=== PATIENT | female | born 1970 | race Caucasian/White ===

== ENCOUNTER 2016-06-06 03:35 | Emergency (ER) | payer OTHER ==
[~2016-06-06 03:35] MED LIST: DICY20TA11 PO; NORC5TAB PO; PRED20TA PO; PRIL40CA PO; STOO100C PO
[2016-06-06 04:57] LABS: ABG BASE EXCESS -2.2 (-2.0-2.0); ABG DEVICE NASAL CANN; ABG HCO3 21.3 MEQ/L (22.0-26.0); ABG PARTIAL PRESSURE CO2 32.6 mmHg (35.0-45.0); ABG PARTIAL PRESSURE O2 91.3 mmHg (75.0-100.0); ABG STANDARD HCO3 22.7 MEQ/L (22.0-26.0); ABG TOTAL CO2 22.3 MEQ/L (22.0-29.0); ABG pH (ARTERIAL) 7.433 UNITS (7.350-7.450)
[2016-06-06] MEDS ORDERED: dexameTHASONE 4 MG/ML 1ML VIAL (J1100) As Ordered ONE (05:15)
--- NOTE | 2016-06-06 05:43 | EDDOCDS ---
Nurse's Notes [facility] Name: Alyssa Almaraz Age: 46 yrs Sex: Female : 1970 Arrival Date: 06/06/2016 Time: 03:35 Bed 11 Private MD: Diagnosis: Acute bronchitis Presentation: 06/06 04:05 Presenting complaint: Patient states: Has been ill for a couple of weeks. Was seen at [facility] urgent care and treated with Levaquin for sinusitis. Completed course yesterday. Now feels as if she is SOB. "Can't get enough air." Cough present. Suicide/Homicide risk assessment- the patient denies having any suicidal and/or homicidal ideations and does not present with any other emotional, behavioral or mental health complaints. Status: Patient is not a auto service dispatcher or dependent. Transition of care: patient was not received from another setting of care. 04:05 Acuity: BERENICE Level 4 [facility] 04:05 Method Of Arrival: Walkin/Carried/Asstd [facility] Triage Assessment: 04:09 General: Appears in no apparent distress, comfortable, Behavior is appropriate for age, [facility] cooperative. Pain: Denies pain. HIV screening NA for this visit Offered previously. Respiratory: Onset: The symptoms/episode began/occurred 2 weeks, Airway is patent Respiratory effort is even, unlabored, Respiratory pattern is regular, symmetrical, Breath sounds are clear bilaterally. Reports shortness of breath air hunger. 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 Prilosec 40 mg Oral cpDR 1 cap once daily (Last dose: 06/05/2016) 2. Stool Softener 100 mg oral cap 1 cap once daily (Last dose: 06/05/2016) 3. Tylenol PM 25-500 mg-mg/mL Oral soln 2 tablets as needed (Last dose: 06/05/2016 23:30) - PMHx: Colitis; - PSHx: Cholecystectomy; - Social history: Smoking status: Patient states was never smoker of tobacco. No barriers to communication noted, The patient speaks fluent Kinyarwanda, Speaks appropriately for age. - Family history: Not pertinent. - : The pt / caregiver states he / she is not on anticoagulants. Home medication list is obtained from the patient. - Exposure Risk Screening:: None identified. Screenin:50 Screening information is obtained from the patient. Fall risk: No risks identified. tm5 Assistance ADL's: requires no assistance with activities of daily living. Abuse/DV Screen: The patient / caregiver reports he/she is: not in a situation that causes fear, pain or injury. Nutritional screening: No deficits noted. Advance Directives: There is no active DNR order. home support is adequate. Assessment: 04:50 General: Appears in no apparent distress, Behavior is appropriate for age, cooperative. tm5 Pain: Denies pain. Neurological: Level of Consciousness is awake, alert, Oriented to person, place, time. Cardiovascular: Chest pain is denied. Respiratory: Airway is patent Respiratory effort is even, unlabored, Respiratory pattern is regular, symmetrical, Breath sounds are clear bilaterally. GI: No deficits noted. : No deficits noted. Derm: Skin is pink, warm & dry. 05:41 Reassessment: Patient appears in no apparent distress at this time. Patient states tm5 feeling better. Patient states symptoms have improved. Vital Signs: 04:09 BP 173 / 100; Pulse 85; Resp 18; Temp 98.9(TE); Pulse Ox 95% on R/A; Weight 124.74 kg [facility] (R); Height 5 ft. 10 in. (177.80 cm) (R); Pain 0/10; 05:41 BP 184 / 91; Pulse 74; Resp 18; Temp 97.9(O); Pulse Ox 99% on R/A; Pain 0/10; tm5 04:09 Body Mass Index 39.46 (124.74 kg, 177.80 cm) [facility] Vitals: 04:09 Log In Time: June 06, 2016 at 03:38. [facility] ED Course: 03:37 Patient visited by Quynh Cruz Reg. hs2 03:37 Patient moved to Waiting hs2 04:07 Triage Initiated km 04:20 Patient moved to Triage 2 kmg1 04:21 Patient moved to 11 km 04:25 Rhett King DO is Attending Physician. cs11 04:25 Patient visited by Rhett King DO. cs11 04:49 Patient visited by Jazmyne Mcintyre RN. tm5 04:50 Patient moved to radiology. tm5 04:50 The patient / caregiver is instructed regarding the plan of care and ED course. tm5 04:54 -Arterial Blood Gas Sent. jh6 05:41 Patient visited by Jazmyne Mcintyre RN. tm5 05:41 Notified attending ED physician of pt's blood pressure remaining high . tm5 05:41 No IV's were initiated during this patient's visit. No procedures done that require tm5 assistance. Administered Medications: 05:18 Drug: Decadron - Dexamethasone Sodium Phosphate 8 mg [dexamethasone 4 mg/mL injection tm5 solution (2 mL)] Route: IM; Site: left gluteus; 05:41 Follow up: Response: No Adverse Reaction tm5 RT: 04:54 ABG's drawn from right radial artery pressure held for 5 minutes no bleeding noted jh6 pressure bandage applied specimen sent pt. tolerated well. Respiratory: Airway is patent Respiratory effort is even, unlabored, Respiratory pattern is regular symmetrical, Breath sounds are clear in left posterior upper lobe, right posterior upper lobe, left posterior lower lobe, right posterior middle lobe and right posterior lower lobe. Order Results: Lab Order: -Arterial Blood Gas; SPEC'M 06/06/16 04:48 Test: ABG pH (ARTERIAL); Value: 7.433; Range: 7.350-7.450; Units: UNITS; Status: F Test: ABG PARTIAL PRESSURE CO2; Value: 32.6; Range: 35.0-45.0; Abnormal: Below low normal; Units: mmHg; Status: F Test: ABG PARTIAL PRESSURE O2; Value: 91.3; Range: 75.0-100.0; Units: mmHg; Status: F Test: ABG TOTAL CO2; Value: 22.3; Range: 22.0-29.0; Units: MEQ/L; Status: F Test: ABG HCO3; Value: 21.3; Range: 22.0-26.0; Abnormal: Below low normal; Units: MEQ/L; Status: F Test: ABG BASE EXCESS; Value: -2.2; Range: -2.0-2.0; Abnormal: Below low normal; Status: F Test: ABG STANDARD HCO3; Value: 22.7; Range: 22.0-26.0; Units: MEQ/L; Status: F Test: ABG O2 SATURATION; Value: 97.4; Range: 95.0-99.0; Units: %; Status: F Test: ABG DEVICE; Value: NASAL LENORE; Status: F Outcome: 05:10 Discharge ordered by Provider. cs11 05:41 Discharge Assessment: Patient awake, alert and oriented x 3. No cognitive and/or tm5 functional deficits noted. Patient verbalized understanding of disposition instructions. patient administered narcotics - no. The following High Risk Discharge criteria are identified: None. Discharged to home ambulatory. Condition: good Condition: stable Condition: improved. Discharge instructions given to patient, Instructed on discharge instructions, follow up and referral plans. medication usage, Demonstrated understanding of instructions, medications, Pt was receptive of discharge instructions/ teaching. Prescriptions given X 1. No special radiology studies were completed. Property :Personal belongings accompany Pt. 05:43 Patient left the ED. tm5 Signatures: Yadi Latham, RN RN kmg1 Buddy Solomon jh6 Rhett King, DO cs11 Quynh Cruz, Reg Reg hs2 Jazmyne Mcintyre,TAMICA RN tm5 MTDD
--- NOTE | 2016-06-06 05:43 | EDDOCDS ---
Physician Documentation [facility] Name: Alyssa Almaraz Age: 46 yrs Sex: Female : 1970 Arrival Date: 06/06/2016 Time: 03:35 Bed 11 Private MD: Disposition: 06/06/16 05:10 Discharged to Home/Self Care. Impression: Acute bronchitis. - Condition is Stable. - Prescriptions for Prednisone 20 mg Oral Tablet - take 3 tablet by ORAL route once daily for 5 days; 15 tablet. - Medication Reconciliation, Local Pharmacy Hours form. - Follow up: Private Physician; When: Call to arrange an appointment; Reason: Recheck today's complaints. - Problem is an ongoing problem. - Symptoms have improved. Historical: - Allergies: No known drug Allergies; - Home Meds: 1. Prilosec 40 mg Oral cpDR 1 cap once daily (Last dose: 06/05/2016) 2. Stool Softener 100 mg oral cap 1 cap once daily (Last dose: 06/05/2016) 3. Tylenol PM 25-500 mg-mg/mL Oral soln 2 tablets as needed (Last dose: 06/05/2016 23:30) - PMHx: Colitis; - PSHx: Cholecystectomy; - Social history: Smoking status: Patient states was never smoker of tobacco. No barriers to communication noted, The patient speaks fluent Irish, Speaks appropriately for age. - Family history: Not pertinent. - : The pt / caregiver states he / she is not on anticoagulants. Home medication list is obtained from the patient. - Exposure Risk Screening:: None identified. 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 10 in. (177.80 cm) (R); Pain 0/10; 05:41 BP 184 / 91; Pulse 74; Resp 18; Temp 97.9(O); Pulse Ox 99% on R/A; Pain 0/10; tm5 04:09 Body Mass Index 39.46 (124.74 kg, 177.80 cm) [facility] MDM: 04:25 Call Respiratory ordered. cs11 04:26 -Arterial Blood Gas Ordered. EDMS 04:26 Chest, 2 View (pa\E\lat) Ordered. EDMS 04:40 Call Respiratory complete. tm5 05:05 -Arterial Blood Gas Reviewed. cs11 05:09 Decadron - Dexamethasone Sodium Phosphate 8 mg IM once ordered. cs11 Administered Medications: 05:18 Drug: Decadron - Dexamethasone Sodium Phosphate 8 mg [dexamethasone 4 mg/mL injection tm5 solution (2 mL)] Route: IM; Site: left gluteus; 05:41 Follow up: Response: No Adverse Reaction tm5 Signatures: Dispatcher [employer] EDMS Yadi Latham, RN RN kmg1 Rhett King DO DO cs11 Jazmyne Mcintyre RN RN tm5 MTDD
--- NOTE | 2016-06-06 07:26 | REP ---
Clinical: Shortness of breath . Comparison: 08/10/2009 . Technique: PA and lateral. Findings: The mediastinum and cardiac silhouette are normal. The lung chery are clear and without acute consolidation, effusion, or pneumothorax. The skeletal structures are intact and normal. Impression: 1. No acute cardiopulmonary process. Signed by Murtaza Torrez MD 06/06/2016 07:17 A
--- NOTE | 2016-06-08 06:44 | EDDOCDS ---
Physician Documentation [facility] Name: Alyssa Almaraz Age: 46 yrs Sex: Female : 1970 Arrival Date: 06/06/2016 Time: 03:35 Bed 11 Private MD: Disposition: 06/06/16 05:10 Discharged to Home/Self Care. Impression: Acute bronchitis. - Condition is Stable. - Prescriptions for Prednisone 20 mg Oral Tablet - take 3 tablet by ORAL route once daily for 5 days; 15 tablet. - Medication Reconciliation, Local Pharmacy Hours form. - Follow up: Private Physician; When: Call to arrange an appointment; Reason: Recheck today's complaints. - Problem is an ongoing problem. - Symptoms have improved. Historical: - Allergies: No known drug Allergies; - Home Meds: 1. Prilosec 40 mg Oral cpDR 1 cap once daily (Last dose: 06/05/2016) 2. Stool Softener 100 mg oral cap 1 cap once daily (Last dose: 06/05/2016) 3. Tylenol PM 25-500 mg-mg/mL Oral soln 2 tablets as needed (Last dose: 06/05/2016 23:30) - PMHx: Colitis; - PSHx: Cholecystectomy; - Social history: Smoking status: Patient states was never smoker of tobacco. No barriers to communication noted, The patient speaks fluent Bulgarian, Speaks appropriately for age. - Family history: Not pertinent. - : The pt / caregiver states he / she is not on anticoagulants. Home medication list is obtained from the patient. - Exposure Risk Screening:: None identified. 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 10 in. (177.80 cm) (R); Pain 0/10; 05:41 BP 184 / 91; Pulse 74; Resp 18; Temp 97.9(O); Pulse Ox 99% on R/A; Pain 0/10; tm5 04:09 Body Mass Index 39.46 (124.74 kg, 177.80 cm) [facility] MDM: 04:25 Call Respiratory ordered. cs11 04:26 -Arterial Blood Gas Ordered. EDMS 04:26 Chest, 2 View (pa\E\lat) Ordered. EDMS 04:40 Call Respiratory complete. tm5 05:05 -Arterial Blood Gas Reviewed. cs11 05:09 Decadron - Dexamethasone Sodium Phosphate 8 mg IM once ordered. cs11 05:57 [facility] Payment Agreement was scanned into [employer] and attached to record. hs2 08:38 T-Sheet-- Draft Copy was scanned into [employer] and attached to record. seh Administered Medications: 05:18 Drug: Decadron - Dexamethasone Sodium Phosphate 8 mg [dexamethasone 4 mg/mL injection tm5 solution (2 mL)] Route: IM; Site: left gluteus; 05:41 Follow up: Response: No Adverse Reaction tm5 Signatures: Dispatcher [employer] Yadi Bartlett, RN RN kmg1 Rhett King DO DO cs11 Quynh Cruz, Reg Reg hs2 Kalee Delaney Tonya, RN RN tm5 The chart was reviewed and I authenticate all verbal orders and agree with the evaluation and treatment provided.Attachments: 05:57 [facility] Payment Agreement hs2 08:38 T-Sheet-- Draft Copy se Chart Complete MTDD
--- NOTE | 2016-06-08 06:44 | EDDOCDS ---
Nurse's Notes [facility] Name: Alyssa Almaraz Age: 46 yrs Sex: Female : 1970 Arrival Date: 06/06/2016 Time: 03:35 Bed 11 Private MD: Diagnosis: Acute bronchitis Presentation: 06/06 04:05 Presenting complaint: Patient states: Has been ill for a couple of weeks. Was seen at [facility] urgent care and treated with Levaquin for sinusitis. Completed course yesterday. Now feels as if she is SOB. "Can't get enough air." Cough present. Suicide/Homicide risk assessment- the patient denies having any suicidal and/or homicidal ideations and does not present with any other emotional, behavioral or mental health complaints. Status: Patient is not a environmental services aide or dependent. Transition of care: patient was not received from another setting of care. 04:05 Acuity: BERENICE Level 4 [facility] 04:05 Method Of Arrival: Walkin/Carried/Asstd [facility] Triage Assessment: 04:09 General: Appears in no apparent distress, comfortable, Behavior is appropriate for age, [facility] cooperative. Pain: Denies pain. HIV screening NA for this visit Offered previously. Respiratory: Onset: The symptoms/episode began/occurred 2 weeks, Airway is patent Respiratory effort is even, unlabored, Respiratory pattern is regular, symmetrical, Breath sounds are clear bilaterally. Reports shortness of breath air hunger. 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 Prilosec 40 mg Oral cpDR 1 cap once daily (Last dose: 06/05/2016) 2. Stool Softener 100 mg oral cap 1 cap once daily (Last dose: 06/05/2016) 3. Tylenol PM 25-500 mg-mg/mL Oral soln 2 tablets as needed (Last dose: 06/05/2016 23:30) - PMHx: Colitis; - PSHx: Cholecystectomy; - Social history: Smoking status: Patient states was never smoker of tobacco. No barriers to communication noted, The patient speaks fluent Uzbek, Speaks appropriately for age. - Family history: Not pertinent. - : The pt / caregiver states he / she is not on anticoagulants. Home medication list is obtained from the patient. - Exposure Risk Screening:: None identified. Screenin:50 Screening information is obtained from the patient. Fall risk: No risks identified. tm5 Assistance ADL's: requires no assistance with activities of daily living. Abuse/DV Screen: The patient / caregiver reports he/she is: not in a situation that causes fear, pain or injury. Nutritional screening: No deficits noted. Advance Directives: There is no active DNR order. home support is adequate. Assessment: 04:50 General: Appears in no apparent distress, Behavior is appropriate for age, cooperative. tm5 Pain: Denies pain. Neurological: Level of Consciousness is awake, alert, Oriented to person, place, time. Cardiovascular: Chest pain is denied. Respiratory: Airway is patent Respiratory effort is even, unlabored, Respiratory pattern is regular, symmetrical, Breath sounds are clear bilaterally. GI: No deficits noted. : No deficits noted. Derm: Skin is pink, warm & dry. 05:41 Reassessment: Patient appears in no apparent distress at this time. Patient states tm5 feeling better. Patient states symptoms have improved. Vital Signs: 04:09 BP 173 / 100; Pulse 85; Resp 18; Temp 98.9(TE); Pulse Ox 95% on R/A; Weight 124.74 kg [facility] (R); Height 5 ft. 10 in. (177.80 cm) (R); Pain 0/10; 05:41 BP 184 / 91; Pulse 74; Resp 18; Temp 97.9(O); Pulse Ox 99% on R/A; Pain 0/10; tm5 04:09 Body Mass Index 39.46 (124.74 kg, 177.80 cm) [facility] Vitals: 04:09 Log In Time: June 06, 2016 at 03:38. [facility] ED Course: 03:37 Patient visited by Quynh Cruz Reg. hs2 03:37 Patient moved to Waiting hs2 04:07 Triage Initiated km 04:20 Patient moved to Triage 2 kmg1 04:21 Patient moved to 11 km 04:25 Rhett King DO is Attending Physician. cs11 04:25 Patient visited by Rhett King DO. cs11 04:49 Patient visited by Jazmyne Mcintyre RN. tm5 04:50 Patient moved to radiology. tm5 04:50 The patient / caregiver is instructed regarding the plan of care and ED course. tm5 04:54 -Arterial Blood Gas Sent. jh6 05:41 Patient visited by Jazmyne Mcintyre RN. tm5 05:41 Notified attending ED physician of pt's blood pressure remaining high . tm5 05:41 No IV's were initiated during this patient's visit. No procedures done that require tm5 assistance. 05:57 [facility] Payment Agreement was scanned into [employer] and attached to record. hs2 07:34 Chest, 2 View (pa\\E\\lat) Returned. EDMS 08:38 T-Sheet-- Draft Copy was scanned into [employer] and attached to record. seh Administered Medications: 05:18 Drug: Decadron - Dexamethasone Sodium Phosphate 8 mg [dexamethasone 4 mg/mL injection tm5 solution (2 mL)] Route: IM; Site: left gluteus; 05:41 Follow up: Response: No Adverse Reaction tm5 RT: 04:54 ABG's drawn from right radial artery pressure held for 5 minutes no bleeding noted jh6 pressure bandage applied specimen sent pt. tolerated well. Respiratory: Airway is patent Respiratory effort is even, unlabored, Respiratory pattern is regular symmetrical, Breath sounds are clear in left posterior upper lobe, right posterior upper lobe, left posterior lower lobe, right posterior middle lobe and right posterior lower lobe. Order Results: Lab Order: -Arterial Blood Gas; SPEC'M 06/06/16 04:48 Test: ABG pH (ARTERIAL); Value: 7.433; Range: 7.350-7.450; Units: UNITS; Status: F Test: ABG PARTIAL PRESSURE CO2; Value: 32.6; Range: 35.0-45.0; Abnormal: Below low normal; Units: mmHg; Status: F Test: ABG PARTIAL PRESSURE O2; Value: 91.3; Range: 75.0-100.0; Units: mmHg; Status: F Test: ABG TOTAL CO2; Value: 22.3; Range: 22.0-29.0; Units: MEQ/L; Status: F Test: ABG HCO3; Value: 21.3; Range: 22.0-26.0; Abnormal: Below low normal; Units: MEQ/L; Status: F Test: ABG BASE EXCESS; Value: -2.2; Range: -2.0-2.0; Abnormal: Below low normal; Status: F Test: ABG STANDARD HCO3; Value: 22.7; Range: 22.0-26.0; Units: MEQ/L; Status: F Test: ABG O2 SATURATION; Value: 97.4; Range: 95.0-99.0; Units: %; Status: F Test: ABG DEVICE; Value: NASAL LENORE; Status: F Radiology Order: Chest, 2 View (pa\\E\\lat) Test: Chest, 2 View (pa\\E\\lat) REASON FOR EXAMINATION: Shortness of Breath; Clinical: Shortness of breath .; ; Comparison: 08/10/2009 .; ; Technique: PA and lateral.; ; Findings:; The mediastinum and cardiac silhouette are normal. The lung chery are clear and; without acute consolidation, effusion, or pneumothorax. The skeletal structures; are intact and normal.; ; Impression:; 1. No acute cardiopulmonary process.; ; ; Signed by; Murtaza Torrez MD 06/06/2016 07:17 A; Outcome: 05:10 Discharge ordered by Provider. cs11 05:41 Discharge Assessment: Patient awake, alert and oriented x 3. No cognitive and/or tm5 functional deficits noted. Patient verbalized understanding of disposition instructions. patient administered narcotics - no. The following High Risk Discharge criteria are identified: None. Discharged to home ambulatory. Condition: good Condition: stable Condition: improved. Discharge instructions given to patient, Instructed on discharge instructions, follow up and referral plans. medication usage, Demonstrated understanding of instructions, medications, Pt was receptive of discharge instructions/ teaching. Prescriptions given X 1. No special radiology studies were completed. Property :Personal belongings accompany Pt. 05:43 Patient left the ED. tm5 Signatures: Dispatcher [employer] EDMS Yadi Latham, RN RN kmg1 Buddy Solomon jh6 Rhett King DO DO cs11 Quynh Cruz, Reg Reg hs2 Kalee Delaney Tonya, RN RN tm5 Chart Complete MTDD
--- NOTE | 2016-06-08 06:44 | EDDOCDS ---
Physician Documentation [facility] Name: Alyssa Almaraz Age: 46 yrs Sex: Female : 1970 Arrival Date: 06/06/2016 Time: 03:35 Bed 11 Private MD: Disposition: 06/06/16 05:10 Discharged to Home/Self Care. Impression: Acute bronchitis. - Condition is Stable. - Prescriptions for Prednisone 20 mg Oral Tablet - take 3 tablet by ORAL route once daily for 5 days; 15 tablet. - Medication Reconciliation, Local Pharmacy Hours form. - Follow up: Private Physician; When: Call to arrange an appointment; Reason: Recheck today's complaints. - Problem is an ongoing problem. - Symptoms have improved. Historical: - Allergies: No known drug Allergies; - Home Meds: 1. Prilosec 40 mg Oral cpDR 1 cap once daily (Last dose: 06/05/2016) 2. Stool Softener 100 mg oral cap 1 cap once daily (Last dose: 06/05/2016) 3. Tylenol PM 25-500 mg-mg/mL Oral soln 2 tablets as needed (Last dose: 06/05/2016 23:30) - PMHx: Colitis; - PSHx: Cholecystectomy; - Social history: Smoking status: Patient states was never smoker of tobacco. No barriers to communication noted, The patient speaks fluent Syriac, Speaks appropriately for age. - Family history: Not pertinent. - : The pt / caregiver states he / she is not on anticoagulants. Home medication list is obtained from the patient. - Exposure Risk Screening:: None identified. 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 10 in. (177.80 cm) (R); Pain 0/10; 05:41 BP 184 / 91; Pulse 74; Resp 18; Temp 97.9(O); Pulse Ox 99% on R/A; Pain 0/10; tm5 04:09 Body Mass Index 39.46 (124.74 kg, 177.80 cm) [facility] MDM: 04:25 Call Respiratory ordered. cs11 04:26 -Arterial Blood Gas Ordered. EDMS 04:26 Chest, 2 View (pa\E\lat) Ordered. EDMS 04:40 Call Respiratory complete. tm5 05:05 -Arterial Blood Gas Reviewed. cs11 05:09 Decadron - Dexamethasone Sodium Phosphate 8 mg IM once ordered. cs11 05:57 [facility] Payment Agreement was scanned into [employer] and attached to record. hs2 08:38 T-Sheet-- Draft Copy was scanned into [employer] and attached to record. seh Administered Medications: 05:18 Drug: Decadron - Dexamethasone Sodium Phosphate 8 mg [dexamethasone 4 mg/mL injection tm5 solution (2 mL)] Route: IM; Site: left gluteus; 05:41 Follow up: Response: No Adverse Reaction tm5 Signatures: Dispatcher [employer] Yadi Bartlett, RN RN kmg1 Rhett King DO DO cs11 Quynh Cruz, Reg Reg hs2 Kalee Delaney Tonya, RN RN tm5 The chart was reviewed and I authenticate all verbal orders and agree with the evaluation and treatment provided.Attachments: 05:57 [facility] Payment Agreement hs2 08:38 T-Sheet-- Draft Copy se Chart Complete MTDD
== END 2016-06-06 05:43 | disposition home or self-care (01) ==
LOC: M ED 03:35
DX: J20.9 Acute bronchitis, unspecified (principal); K52.9 Noninfective gastroenteritis and colitis, unspecified; Z79.899 Other long term (current) drug therapy
CPT/HCPCS: 36600; 71020; 82803; 96372; 99284; J1100

== ENCOUNTER → 2016-07-05 | Outpatient (REF) | payer OTHER | LOC: M LAB REF 10:20 | PROVIDERS: ATTEND Physician Assistant Medical | DX: J10.1 Influenza due to other identified influenza virus with other respiratory manifestations (principal) ==

== ENCOUNTER → 2016-09-10 | Outpatient (CLI) | payer OTHER ==
[~2016-09-10] MED LIST changes: +NORC1TAB4 PO; -NORC5TAB PO
--- NOTE | 2016-09-10 10:47 | REP ---
BILATERAL MAMMOGRAM: Family history of breast cancer in maternal grandmother. Bilateral MLO and CC views demonstrate scattered stable fibroglandular elements bilaterally. However, there does appear to be a new 5 mm nodular density in the upper inner left breast. This appears fairly well defined. No other new mass is seen. No clustered microcalcifications are seen. IMPRESSION: There appears to be a new 5 mm nodular density in the upper inner left breast. Recommend spot compression views and ultrasound to further evaluate. ACR 0 incomplete. BI-RADS/ACR category 0 mammogram, incomplete. Additional imaging and/or prior images are needed before a final assessment can be assigned. This mammogram was interpreted with the aid of an FDA-approved computer-aided detection system. A. Negative x-ray reports should not delay biopsy if a dominant or clinically suspicious mass is present. B. Four to eight percent of cancers are not identified by x-ray. C. Adenosis and dense breasts may obscure an underlying neoplasm. The patient states she/he had a clinical breast exam in September 2016. The patient letter being requested is M0
== END ==
LOC: M WHC 08:29
PROVIDERS: ATTEND Nurse Practitioner Women's Health
DX: Z12.31 Encounter for screening mammogram for malignant neoplasm of breast (principal); N63 Unspecified lump in breast

== ENCOUNTER → 2016-09-10 | Outpatient (REF) | payer OTHER | LOC: M SFHCWAGY 08:43 | PROVIDERS: ATTEND Nurse Practitioner Women's Health | DX: Z12.4 Encounter for screening for malignant neoplasm of cervix (principal) ==

== ENCOUNTER → 2016-09-15 | Outpatient (CLI) | payer OTHER ==
--- NOTE | 2016-09-15 15:48 | REP ---
Digital diagnostic unilateral left breast mammography and focused left breast sonography: History: Screening mammography from September 10, 2016 was BIRADS category 0 because of a possible nodular neodensity in the medial aspect of the left breast. Diagnostic imaging was recommended. Mammographic findings: Rolled CC, and magnified focal spot compression CC, true ML and ML views of the left breast are obtained. A nonmagnified true ML view is obtained as well. These confirm the presence of a 5 mm slightly irregular nodular opacity in the superior and medial aspect of the left breast. Scattered fibroglandular elements are seen as before. No other significant mammographic finding. Sonographic findings: The left breast is scanned from 9 o'clock to 12 o'clock. There is a cyst seen at 11 o'clock measuring 5 x 3 x 3 mm located 4 cm from the nipple. This is felt to correspond with the mammographic opacity. Impression: BIRADS category 2 benign left breast imaging. Cyst identified by ultrasound at the site of the nodular neodensity seen mammographically. Repeat screening mammography recommended 1 year. This mammogram was interpreted with the aid of an FDA-approved computer-aided detection system. The patient states she/he had a clinical breast exam in September 10, 2016 The patient letter being requested is M1 . Signed by Prakash Lundy MD 09/15/2016 05:23 P
== END ==
LOC: M RAD 13:09
PROVIDERS: ATTEND Nurse Practitioner Women's Health
DX: N60.02 Solitary cyst of left breast (principal)
CPT/HCPCS: 76642; G0206

== ENCOUNTER → 2017-05-06 | Outpatient (REF) | payer OTHER ==
[2017-05-06 22:39] LABS: APPEARANCE, URINE CLEAR (CLEAR); BACTERIA, URINE AUTO NEGATIVE (NEGATIVE); BILIRUBIN, URINE AUTO NEGATIVE (NEGATIVE); BLOOD, URINE BLOOD NEGATIVE (NEGATIVE); COLOR, URINE YELLOW (YELLOW); GLUCOSE, URINE (UA) AUTO NEGATIVE (NEGATIVE); KETONE, URINE AUTO NEGATIVE (NEGATIVE); LEUKOCYTE ESTERASE, URINE AUTO NEGATIVE (NEGATIVE); MUCUS, URINE SMALL (NEGATIVE); NITRITE, URINE AUTO NEGATIVE (NEGATIVE); PROTEIN, URINE AUTO NEGATIVE (NEGATIVE); RBC, URINE AUTO 0 /HPF (0-3); SQUAMOUS EPITHELIAL CELL UR AU 3 /HPF (0-6); UROBILINOGEN, URINE AUTO 0.2 mg/dL (0.0-2.0); WBC, URINE AUTO 1 /HPF (0-3)
== END ==
LOC: M LAB REF 21:51
DX: N39.0 Urinary tract infection, site not specified (principal)

== ENCOUNTER → 2017-11-01 | Outpatient (CLI) | payer OTHER | LOC: M WHC 10:28 | DX: Z12.31 Encounter for screening mammogram for malignant neoplasm of breast (principal) | CPT/HCPCS: 77067 ==

== ENCOUNTER → 2018-07-22 | Outpatient (CLI) | payer OTHER ==
[~2018-07-22] MED LIST changes: -NORC1TAB4 PO; +NORC1TAB7 PO
--- NOTE | 2018-07-26 21:13 | SLEEPCENT ---
DATE OF PROCEDURE: 07/22/2018 Ordered by: Rashaad Dangelo MD Nocturnal polysomnography was performed for evaluation of sleep physiology in this patient with a history of excessive somnolence, morning headaches and nonrestorative sleep who has comorbidity of hypertension. 9 hours and 3 minutes of data were reviewed. There were 381 minutes of sleep identified. Sleep latency was prolonged at 40 minutes. Rapid eye movement (REM) latency was more so prolonged at 244 minutes. Sleep architecture initially very fragmented, improved substantially and there evidence of REM rebound after interventions were made. Overall sleep efficiency 70.9%. The electrocardiogram showed a sinus rhythm with an average heart rate of 80 beats per minute. EEG showed normal waveforms for awake and sleep stages. There were 186 respiratory events identified of 10 seconds in duration or greater for an apnea-hypopnea index of 29.3. The events were obstructive and associated with oxygen desaturations into the low 80s. Having clearly established the presence of obstructive sleep apnea syndrome early in testing, the study was stopped just after midnight for the application of pressure therapy. The patient was fit with a ResMed AirFit F20 full face mask of medium size, 4 cm of water pressure were applied to the circuit and the lights were extinguished. Throughout the remaining hours of testing, pressure titration was performed to an optimal pressure at +11. Some limb activity was noted. Snoring was seen early in the study which responded to pressure therapy as well. IMPRESSION Obstructive sleep apnea syndrome (G47.33). Apnea-hypopnea index 29.3. RECOMMENDATION Nightly use of pressure therapy, 11 cm of water.
== END ==
LOC: M SLEEP 19:39
PROVIDERS: ATTEND Internal Medicine Pulmonary Disease
DX: G47.33 Obstructive sleep apnea (adult) (pediatric) (principal)

== ENCOUNTER → 2019-01-26 | Outpatient (CLI) | payer OTHER ==
[~2019-01-26] MED LIST changes: +MM S100C PO; -STOO100C PO
--- NOTE | 2019-01-26 15:31 | REPMRS ---
Patient History The patient states she had a clinical breast exam in 01/2019. Family history of breast cancer at age 71 in maternal grandmother. Taking hormonal contraceptives for 5 years 3 months. Digital Woman Screen Mammo: January 26, 2019 - Exam #: [id number] Bilateral CC and MLO view(s) were taken. Technologist: Christi Card Technologist Prior study comparison: November 01, 2017, bilateral digital woman screen mammo performed at [facility]. September 15, 2016, left breast ultrasound unilateral limited, performed at [facility]. April 19, 2015, digital woman screen mammo performed at [facility]. FINDINGS: There are scattered fibroglandular densities. There has been no change in the appearance of the mammogram from the prior studies. There is a mild amount of scattered fibroglandular density which is fairly symmetric. There is no interval development of dominant mass, architectural distortion, or grouped microcalcification suggestive of malignancy. 3-D tomosynthesis shows no additional findings. Assessment: BI-RADS/ACR category 1 mammogram. Negative Mammogram. Recommendation Routine screening mammogram of both breasts in 1 year (for women over age 40). This patient's Lifetime Breast Cancer Risk is estimated at 13.5 %. This mammogram was interpreted with the aid of an FDA-approved computer-aided dectection system. Electronically Signed By: Richmond Lundy MD 01/26/19 1003
== END ==
LOC: M WHC 10:22
PROVIDERS: ATTEND Nurse Practitioner Women's Health
DX: Z12.31 Encounter for screening mammogram for malignant neoplasm of breast (principal); Z80.3 Family history of malignant neoplasm of breast

== ENCOUNTER → 2019-05-23 | Outpatient (REF) | payer OTHER ==
[~2019-05-23] MED LIST changes: +ALLE10TA62 PO; +ALPR0.5T6 PO; +AZUR1TAB PO; +LOSA50TA88 PO; +MELA5CAP2 PO; +METR0.7533 TOP; +OMEP-221 PO; +PROZ20CA11 PO
[2019-05-23 18:56] LABS: PERCENT SATURATION 7.4 % (13.2-45.0)
== END ==
LOC: M LAB REF 17:14
PROVIDERS: ATTEND Family Medicine
DX: E61.1 Iron deficiency (principal)

== ENCOUNTER → 2019-06-12 | Outpatient (CLI) | payer OTHER ==
[2019-06-12 16:26] LABS: BASO # 0.2 10^3/uL (0.0-0.2); BASO % 0.9 % (0.0-1.0); EOS # 0.4 10^3/uL (0.0-0.5); EOS % 2.5 % (0.0-3.0); HEMATOCRIT 42.7 % (36.0-47.0); HEMOGLOBIN 13.4 g/dl (12.0-15.5); LYMPH # 3.2 10^3/uL (1.5-5.0); LYMPH % 18.4 % (24.0-44.0); MEAN CORPUSCULAR HEMOGLOBIN 29.3 pg (27.0-33.0); MEAN CORPUSCULAR HGB CONC 31.4 g/dl (32.0-36.5); MEAN CORPUSCULAR VOLUME 93.4 fl (80.0-96.0); MONO # 1.3 10^3/uL (0.0-0.8); MONO % 7.2 % (0.0-5.0); NEUTROPHILS # 12.3 10^3/uL (1.5-8.5); NEUTROPHILS % 70.1 % (36.0-66.0); PLATELET COUNT, AUTOMATED 384 10^3/uL (150-450); RED BLOOD COUNT 4.57 10^6/uL (4.00-5.40); WHITE BLOOD COUNT 17.5 10^3/uL (4.0-10.0)
[2019-06-12 17:01] LABS: PERCENT SATURATION 18.7 % (13.2-45.0)
== END ==
LOC: M LAB 16:00
PROVIDERS: ATTEND Physician Assistant Medical
DX: E61.1 Iron deficiency (principal)

== ENCOUNTER → 2019-08-07 | Outpatient (CLI) | payer OTHER | LOC: M LAB 12:30 | PROVIDERS: ATTEND Internal Medicine Gastroenterology | DX: D50.9 Iron deficiency anemia, unspecified (principal) ==

== ENCOUNTER → 2019-08-07 | Outpatient (CLI) | payer OTHER ==
[2019-08-07 13:08] LABS: BASO # 0.1 10^3/uL (0.0-0.2); BASO % 0.9 % (0.0-1.0); EOS # 0.4 10^3/uL (0.0-0.5); EOS % 2.4 % (0.0-3.0); HEMATOCRIT 43.7 % (36.0-47.0); HEMOGLOBIN 14.2 g/dl (12.0-15.5); LYMPH # 2.3 10^3/uL (1.5-5.0); LYMPH % 14.6 % (24.0-44.0); MEAN CORPUSCULAR HEMOGLOBIN 30.9 pg (27.0-33.0); MEAN CORPUSCULAR HGB CONC 32.5 g/dl (32.0-36.5); MEAN CORPUSCULAR VOLUME 95.2 fl (80.0-96.0); MONO # 0.9 10^3/uL (0.0-0.8); MONO % 5.9 % (0.0-5.0); NEUTROPHILS % 75.6 % (36.0-66.0); PLATELET COUNT, AUTOMATED 355 10^3/uL (150-450); RED BLOOD COUNT 4.59 10^6/uL (4.00-5.40); WHITE BLOOD COUNT 15.9 10^3/uL (4.0-10.0)
[2019-08-07 13:26] LABS: PERCENT SATURATION 17.8 % (13.2-45.0)
== END ==
LOC: M LAB 12:27
PROVIDERS: ATTEND Physician Assistant Medical
DX: E61.1 Iron deficiency (principal)

== ENCOUNTER → 2019-09-22 | Outpatient (REF) | payer OTHER ==
[2019-09-22 17:41] LABS: C REACTIVE PROTEIN QUANTITATIV 3.07 MG/DL (0.00-0.30)
[2019-09-22 17:53] LABS: VITAMIN B12 LEVEL 567 PG/ML
[2019-09-22 17:55] LABS: FOLATE > 24.0 NG/ML
== END ==
LOC: M LAB REF 17:17
PROVIDERS: ATTEND Family Medicine
DX: G60.9 Hereditary and idiopathic neuropathy, unspecified (principal); G72.9 Myopathy, unspecified; E61.1 Iron deficiency; R73.01 Impaired fasting glucose; M79.10 Myalgia, unspecified site

== ENCOUNTER 2019-10-30 10:24 | Day surgery (SDC) | payer OTHER ==
[~2019-10-30] VITALS: Ht 177.8 cm; Wt 111.6 kg
[~2019-10-30 10:24] MED LIST changes: +LIDOCAINE 2% 100MG/5ML SDV (FOR ANES.) As Ordered ONE; +MULTCAP PO; +NS 1,000 ML IV ONE; +propofoL 200 MG/20 ML VIAL As Ordered ONE
[2019-10-30] MEDS ORDERED: propofoL 200 MG/20 ML VIAL As Ordered ONE (11:25)
--- NOTE | 2019-10-30 11:28 | ROOR ---
Patient Name: Alyssa Almaraz Procedure Date: 10/30/2019 11:13 AM Date of : 1970 Age: 49 Room: [facility] Gender: Female Note Status: Finalized Procedure: Upper GI endoscopy Indications: Iron deficiency anemia Providers: Barry CARPENTER MD Referring MD: Cheikh Merrill MD Requesting Provider: Medicines: Monitored Anesthesia Care Complications: No immediate complications. Procedure: Pre-Anesthesia Assessment: - The heart rate, respiratory rate, oxygen saturations, blood pressure, adequacy of pulmonary ventilation, and response to care were monitored throughout the procedure. The Endoscope was introduced through the mouth, and advanced to the second part of duodenum. The upper GI endoscopy was accomplished without difficulty. The patient tolerated the procedure well. Findings: The examined esophagus was normal. Multiple 5 mm sessile fundic gland polyps with no stigmata of recent bleeding were found in the gastric body. This was biopsied with a cold forceps for histology. The exam of the stomach was otherwise normal. The examined duodenum was normal. Biopsies for histology were taken with a cold forceps for evaluation of celiac disease. Impression: - Normal esophagus. - Multiple gastric fundic gland polyps. Biopsied. - The stomach is otherwise normal. - Normal examined duodenum. Biopsied. Recommendation: - Telephone endoscopist for pathology results in 2 weeks. Barry Carpenter MD Barry CARPENTER MD 10/30/2019 11:27:45 AM Electronically signed by Barry CARPENTER MD Number of Addenda: 0 Note Initiated On: 10/30/2019 11:13 AM Estimated Blood Loss: Estimated blood loss: none.
--- NOTE | 2019-10-30 11:52 | ROOR ---
Patient Name: Alyssa Almaraz Procedure Date: 10/30/2019 11:14 AM Date of : 1970 Age: 49 Room: [facility] Gender: Female Note Status: Finalized Procedure: Colonoscopy Indications: Iron deficiency anemia, Chronic idiopathic constipation Providers: Barry CARPENTER MD Referring MD: Cheikh Merrill MD Requesting Provider: Medicines: Monitored Anesthesia Care Complications: No immediate complications. Procedure: Pre-Anesthesia Assessment: - The heart rate, respiratory rate, oxygen saturations, blood pressure, adequacy of pulmonary ventilation, and response to care were monitored throughout the procedure. The Colonoscope was introduced through the anus and advanced to 10 cm into the ileum. The colonoscopy was performed without difficulty. The patient tolerated the procedure well. The quality of the bowel preparation was good. Findings: The perianal and digital rectal examinations were normal. Two sessile polyps were found in the rectum and hepatic flexure. The polyps were diminutive in size. These polyps were removed with a cold snare. Resection and retrieval were complete. The colon (entire examined portion) was redundant. Internal hemorrhoids were found during retroflexion. The hemorrhoids were medium-sized. The exam was otherwise without abnormality on direct and retroflexion views. The terminal ileum appeared normal. Impression: - Two diminutive polyps in the rectum and at the hepatic flexure, removed with a cold snare. Resected and retrieved. - Redundant colon. - Internal hemorrhoids. - The examination was otherwise normal on direct and retroflexion views. - The colon is otherwise normal. - The examined portion of the ileum was normal. Recommendation: - Repeat colonoscopy in 5 years for surveillance. - Telephone endoscopist for pathology results in 2 weeks. Barry Carpenter MD Barry CARPENTER MD 10/30/2019 11:52:09 AM Electronically signed by Barry CARPENTER MD Number of Addenda: 0 Note Initiated On: 10/30/2019 11:14 AM Estimated Blood Loss: Estimated blood loss: none.
[2019-10-30 12:07] VITALS: BP 158/86
== END 2019-10-30 12:08 | disposition home or self-care (01) ==
LOC: M OPP 10:24
PROVIDERS: ATTEND Internal Medicine Gastroenterology
DX: K62.1 Rectal polyp (principal); K63.5 Polyp of colon; K64.8 Other hemorrhoids; D50.9 Iron deficiency anemia, unspecified; K59.04 Chronic idiopathic constipation; Q43.8 Other specified congenital malformations of intestine; K31.7 Polyp of stomach and duodenum

== ENCOUNTER → 2019-11-30 | Outpatient (CLI) | payer OTHER ==
[~2019-11-30] MED LIST changes: -LIDOCAINE 2% 100MG/5ML SDV (FOR ANES.) As Ordered ONE; -NS 1,000 ML IV ONE; -propofoL 200 MG/20 ML VIAL As Ordered ONE
[2019-11-30 18:17] LABS: FREE T4 1.05 NG/DL (0.76-1.46); RHEUMATOID FACTOR QUANT < 10.0 IU/ML (<15.0); THYROID STIMULATING HORMONE 0.482 uIU/ML (0.358-3.740); TOTAL PROTEIN 7.6 GM/DL (6.4-8.2)
[2019-11-30 19:35] LABS: HEMOGLOBIN A1c 5.3 %
[2019-12-01 10:16] LABS: VITAMIN B12 LEVEL 497 PG/ML (247-911)
[2019-12-01 10:23] LABS: FOLATE > 24.0 NG/ML (>5.4)
[2019-12-04 15:14] LABS: ALBUMIN 4.24 GM/DL (3.29-5.55); ALBUMIN % 55.8 % (55.8-66.1); ALPHA-1-GLOBULIN % 5.1 % (2.9-4.9); ALPHA-1-GLOBULINS 0.39 GM/DL (0.17-0.41); ALPHA-2-GLOBULINS % 13.2 % (7.1-11.8); BETA-1-GLOBULINS 0.45 GM/DL (0.28-0.60); BETA-1-GLOBULINS % 5.9 % (4.7-7.2); BETA-2-GLOBULINS 0.46 GM/DL (0.19-0.55); GAMMA GLOBULINS 1.06 GM/DL (0.65-1.58)
[2019-12-05 11:24] LABS: DRVV SCREEN 46.2 SEC
[2019-12-05 11:28] LABS: PTT LUPUS TYPE ANTICOAG SCREEN 1.2 (0-1.2)
[2019-12-05 11:35] LABS: LUPUS CONFIRM RATIO 0.9
[2019-12-05 11:37] LABS: NORMALIZED RATIO 1.33 (0.00-1.20)
[2019-12-05 18:11] LABS: ANTINUCLEAR ANTIBODIES DIRECT Negative (Negative); IgG P18 AB Absent (.); IgG P23 AB Absent (.); IgG P28 AB Absent (.); IgG P30 AB Absent (.); IgG P39 AB Absent (.); IgG P41 AB Absent (.); IgG P45 AB Absent (.); IgG P66 AB Absent (.); IgG P93 AB Absent (.); IgM P23 AB Absent (.); IgM P39 AB Absent (.); IgM P41 AB Absent (.); LYME IgG WB INTERPRETATION Negative (.); LYME IgM WB INTERPRETATION Negative (.); VITAMIN B1 LEVEL WHOLE BLOOD 171.8 nmol/L (66.5-200.0); VITAMIN B6,PYRIDOXAL PHOSPHATE 5.3 ug/L (2.0-32.8); VITAMIN E(ALPHA TOCOPHEROL) 13.8 mg/L (7.0-25.1); VITAMIN E(GAMMA TOCOPHEROL) 1.6 mg/L (0.5-5.5)
[2020-01-25 16:06] LABS: HEXAGONAL PHASE PHOSPHOLIPID 0 sec (0-11)
== END ==
LOC: M PLALAB 15:35
PROVIDERS: ATTEND Psychiatry & Neurology Neurology
DX: G43.009 Migraine without aura, not intractable, without status migrainosus (principal); G25.81 Restless legs syndrome; G62.89 Other specified polyneuropathies

== ENCOUNTER → 2020-01-29 | Outpatient (CLI) | payer OTHER ==
--- NOTE | 2020-01-29 11:43 | REPMRS ---
Patient History The patient states she had a clinical breast exam in January 2020. Family history of breast cancer at age 71 in maternal grandmother. Taking hormonal contraceptives for 5 years 3 months. 3D TOMOSYNTHESIS WAS PERFORMED. [facility] lifetime risk for breast cancer is 13.3%. VOLPAARA DENSITY B. Digital Woman Screen Mammo: January 29, 2020 - Exam #: [id number] Bilateral CC and MLO view(s) were taken. Technologist: RT Mariam Prior study comparison: January 26, 2019, bilateral digital woman screen mammo performed at [facility]. November 01, 2017, bilateral digital woman screen mammo performed at [facility]. FINDINGS: There are scattered fibroglandular densities. There has been no change in the appearance of the mammogram from the prior studies. There is a mild amount of residual fibroglandular tissue which is fairly symmetric. There is no interval development of dominant mass, architectural distortion, or clustered microcalcification suggestive of malignancy. Assessment: BI-RADS/ACR category 1 mammogram. Negative Mammogram. Recommendation Routine screening mammogram in 1 year (for women over age 40). This mammogram was interpreted with the aid of an FDA-approved computer-aided dectection system. Electronically Signed By: Todd Adamson MD 01/29/20 [id number]
== END ==
LOC: M WHC 10:02
PROVIDERS: ATTEND Nurse Practitioner Women's Health
DX: Z12.31 Encounter for screening mammogram for malignant neoplasm of breast (principal); Z79.3 Long term (current) use of hormonal contraceptives

== ENCOUNTER → 2020-01-29 | Outpatient (REF) | payer OTHER | LOC: M SFHCWAGY 13:47 | PROVIDERS: ATTEND Nurse Practitioner Women's Health | DX: Z12.4 Encounter for screening for malignant neoplasm of cervix (principal) ==

== ENCOUNTER → 2020-02-02 | Outpatient (CLI) | payer OTHER ==
--- NOTE | 2020-02-02 11:57 | REPPI ---
INDICATION: M06.4 INFLAMMATORY POLYARTHROPATHY COMPARISON: None. TECHNIQUE: AP, lateral, bilateral oblique views right and left wrist. FINDINGS: Left wrist demonstrates subtle increased sclerosis along the radial surface with minimal radiocarpal joint space narrowing as well as subtle sclerosis and cortical irregularity at the 1st carpometacarpal joint. No further arthritic or obvious inflammatory arthritic changes are noted. No evidence for acute or healed injury. Right wrist demonstrates subtle increased sclerosis along the radial surface with minimal radiocarpal joint space narrowing. Mild sclerosis and cortical irregularity at the 1st carpometacarpal joint noted. No further arthritic or obvious inflammatory through the changes are appreciated. No evidence for acute or healed injury. IMPRESSION: Mild relatively symmetric degenerative changes. <Electronically signed by Murtaza Torrez > 02/02/20 1496
--- NOTE | 2020-02-02 12:00 | REPPI ---
INDICATION: M06.4 INFLAMMATORY POLYARTHROPATHY COMPARISON: None. TECHNIQUE: AP, lateral, bilateral oblique views right and left hand. FINDINGS: Relatively symmetric age-related changes are appreciated including very subtle subchondral sclerosis involving the interphalangeal joints as well as the 1st carpometacarpal joints bilaterally. No further overt osteoarthritic or inflammatory arthritic changes are appreciated. No evidence for acute or healed injury identified to the right or left hand. IMPRESSION: Essentially symmetric age-related changes primarily involving the interphalangeal joint. No overt osteoarthritic or inflammatory arthritic changes otherwise noted. <Electronically signed by Murtaza Torrez > 02/02/20 [id number]
--- NOTE | 2020-02-02 12:04 | REPPI ---
INDICATION: M06.4 INFLAMMATORY POLYARTHROPATHY COMPARISON: None. TECHNIQUE: AP, lateral, bilateral oblique views right and left ankle. FINDINGS: Right ankle demonstrates generalized age-related changes without significant overt osteoarthritic or inflammatory arthritic findings. Lateral view demonstrates small calcaneal heel spur. No periarticular calcifications or erosive changes are identified. Ankle mortise appears intact. Left ankle demonstrates generalized age-related changes without significant overt osteoarthritic or inflammatory arthritic findings. Lateral view demonstrates small calcaneal heel spur and small amount of calcification at the insertion of the Achilles tendon. Ankle mortise appears intact. IMPRESSION: Generalized relatively symmetric age-related changes as noted above. <Electronically signed by Murtaza Torrez > 02/02/20 1200
== END ==
LOC: M PLAIMG 10:34
PROVIDERS: ATTEND Internal Medicine
DX: M06.4 Inflammatory polyarthropathy (principal)

== ENCOUNTER → 2020-02-02 | Outpatient (REF) | payer OTHER ==
[2020-02-02 13:00] LABS: BASO # 0.1 10^3/uL (0.0-0.2); BASO % 0.8 % (0.0-1.0); EOS # 0.5 10^3/uL (0.0-0.5); HEMATOCRIT 43.6 % (36.0-47.0); HEMOGLOBIN 13.5 g/dl (12.0-15.5); LYMPH # 1.7 10^3/uL (1.5-5.0); LYMPH % 13.2 % (24.0-44.0); MEAN CORPUSCULAR VOLUME 96.9 fl (80.0-96.0); MONO % 7.7 % (0.0-5.0); NEUTROPHILS # 9.4 10^3/uL (1.5-8.5); NEUTROPHILS % 73.4 % (36.0-66.0); PLATELET COUNT, AUTOMATED 319 10^3/uL (150-450); WHITE BLOOD COUNT 12.8 10^3/uL (4.0-10.0)
[2020-02-02 13:52] LABS: ERYTHROCYTE SEDIMENTATION RATE 29 mm/hr (0-20)
[2020-02-02 14:33] LABS: ALBUMIN 3.7 GM/DL (3.2-5.2); ALT/SGPT 25 U/L (12-78); BILIRUBIN,DIRECT 0.2 MG/DL (0.0-0.2); BILIRUBIN,TOTAL 0.5 MG/DL (0.2-1.0); BLOOD UREA NITROGEN 16 MG/DL (7-18); C REACTIVE PROTEIN QUANTITATIV 3.47 MG/DL (0.00-0.30); CALCIUM LEVEL 9.8 MG/DL (8.5-10.1); CARBON DIOXIDE LEVEL 23 MEQ/L (21-32); CHLORIDE LEVEL 107 MEQ/L (98-107); CREATININE FOR GFR 0.57 MG/DL (0.55-1.30); GLOMERULAR FILTRATION RATE > 60.0 (>58); GLUCOSE, FASTING 80 MG/DL (70-100); POTASSIUM SERUM 4.8 MEQ/L (3.5-5.1); SODIUM LEVEL 139 MEQ/L (136-145); TOTAL 25(OH) VITAMIN D 25.6 NG/ML (30.0-100.0); TOTAL PROTEIN 7.8 GM/DL (6.4-8.2)
[2020-02-02 15:54] LABS: COMPLEMENT C3 196 MG/DL (90-180); COMPLEMENT C4 57 MG/DL (10-40)
[2020-02-07 02:08] LABS: ANA (HEP2) Negative (.); ANCA-ATYPICAL <1:20 titer (Neg:<1:20); ANTI CENTROMERE ANTIBODY <0.2 AI (0.0-0.9); ANTI DS-DNA AB Negative (Negative); ANTI JO-1 ANTIBODIES <20 Units (<20); ANTI SCLERODERMA ANTIBODIES <0.2 AI (0.0-0.9); ANTI-HISTONE ANTIBODIES 0.3 Units (0.0-0.9); BETA-2 GLYCOPROTEIN I ABY IGA <9 (0-25); BETA-2 GLYCOPROTEIN I ABY IGG <9 (0-20); BETA-2 GLYCOPROTEIN I ABY IGM <9 (0-32); CARDIOLIPIN IGA ANTIBODY <9 APL U/mL (0-11); CARDIOLIPIN IGG ANTIBODY <9 GPL U/mL (0-14); CARDIOLIPIN IGM ANTIBODY <9 MPL U/mL (0-12); COMPLEMENT TOTAL (CH50) 55 U/mL (>41); CYCLIC CITRULLINATED PEPTIDE 3 units (0-19); CYTOPLASMIC NEUTROP AB ANCA-C <1:20 titer (Neg:<1:20); PERINUCLEAR AB ANCA-P <1:20 titer (Neg:<1:20); RNP ANTIBODY < 0.2 AI (0.0-0.9); SMITHS ANTIBODY < 0.2 AI (0.0-0.9); SSA SJOGRENS A <0.2 AI (0.0-0.9); SSB SJOGRENS B <0.2 AI (0.0-0.9)
== END ==
LOC: M SFHCRHEU 10:07
PROVIDERS: ATTEND Internal Medicine
DX: M06.4 Inflammatory polyarthropathy (principal); R21 Rash and other nonspecific skin eruption; R53.83 Other fatigue

== ENCOUNTER → 2020-03-04 | Outpatient (REF) | payer OTHER ==
[2020-03-05 13:15] LABS: APPEARANCE, URINE CLEAR (CLEAR); BACTERIA, URINE AUTO 1+ (NEGATIVE); BILIRUBIN, URINE AUTO NEGATIVE (NEGATIVE); BLOOD, URINE BLOOD NEGATIVE (NEGATIVE); COLOR, URINE YELLOW (YELLOW); GLUCOSE, URINE (UA) AUTO NEGATIVE (NEGATIVE); KETONE, URINE AUTO NEGATIVE (NEGATIVE); LEUKOCYTE ESTERASE, URINE AUTO 1+ (NEGATIVE); NITRITE, URINE AUTO NEGATIVE (NEGATIVE); PROTEIN, URINE AUTO NEGATIVE (NEGATIVE); RBC, URINE AUTO 1 /HPF (0-3); SPECIFIC GRAVITY URINE AUTO 1.011 (1.002-1.035); SQUAMOUS EPITHELIAL CELL UR AU 4 /HPF (0-6); UROBILINOGEN, URINE AUTO 0.2 mg/dL (0.0-2.0); WBC, URINE AUTO 2 /HPF (0-3)
[2020-03-05 13:58] LABS: CREATININE,RANDOM URINE 34.2 MG/DL; TOTAL PROTEIN,RANDOM URINE 9.8 MG/DL (0.0-12.0)
[2020-03-06 11:29] LABS: DRVV SCREEN 47.2 SEC
[2020-03-06 11:32] LABS: PTT LUPUS TYPE ANTICOAG SCREEN 1.2 (0-1.2)
[2020-03-06 11:42] LABS: DRVV CONFIRM 42.2 SEC; LUPUS CONFIRM RATIO 1.1
[2020-03-06 11:43] LABS: NORMALIZED RATIO 1.09 (0.00-1.20)
== END ==
LOC: M SFHCRHEU 12:38
PROVIDERS: ATTEND Internal Medicine
DX: R76.0 Raised antibody titer (principal); M06.4 Inflammatory polyarthropathy

== ENCOUNTER → 2020-07-17 | Outpatient (REF) | payer OTHER ==
[2020-07-17 17:21] LABS: BASO # 0.2 10^3/uL (0.0-0.2); BASO % 1.1 % (0.0-1.0); EOS # 0.5 10^3/uL (0.0-0.5); EOS % 2.9 % (0.0-3.0); LYMPH # 2.8 10^3/uL (1.5-5.0); LYMPH % 17.8 % (24.0-44.0); MEAN CORPUSCULAR HGB CONC 31.1 g/dl (32.0-36.5); MEAN CORPUSCULAR VOLUME 96.6 fl (80.0-96.0); MONO # 1.2 10^3/uL (0.0-0.8); MONO % 7.9 % (2.0-8.0); NEUTROPHILS # 10.8 10^3/uL (1.5-8.5); NEUTROPHILS % 69.5 % (36.0-66.0); PLATELET COUNT, AUTOMATED 318 10^3/uL (150-450); RED BLOOD COUNT 4.66 10^6/uL (4.00-5.40); WHITE BLOOD COUNT 15.6 10^3/uL (4.0-10.0)
[2020-07-17 17:34] LABS: APPEARANCE, URINE HAZY (CLEAR); BACTERIA, URINE AUTO NEGATIVE (NEGATIVE); BILIRUBIN, URINE AUTO NEGATIVE (NEGATIVE); BLOOD, URINE BLOOD NEGATIVE (NEGATIVE); COLOR, URINE YELLOW (YELLOW); GLUCOSE, URINE (UA) AUTO NEGATIVE (NEGATIVE); KETONE, URINE AUTO NEGATIVE (NEGATIVE); LEUKOCYTE ESTERASE, URINE AUTO TRACE (NEGATIVE); MUCUS, URINE SMALL (NEGATIVE); NITRITE, URINE AUTO NEGATIVE (NEGATIVE); PROTEIN, URINE AUTO NEGATIVE (NEGATIVE); RBC, URINE AUTO 1 /HPF (0-3); SPECIFIC GRAVITY URINE AUTO 1.021 (1.002-1.035); SQUAMOUS EPITHELIAL CELL UR AU 7 /HPF (0-6); UROBILINOGEN, URINE AUTO 0.2 mg/dL (0.0-2.0); WBC, URINE AUTO 3 /HPF (0-3)
[2020-07-17 17:50] LABS: TOTAL PROTEIN,RANDOM URINE 14.6 MG/DL (0.0-12.0)
[2020-07-17 17:59] LABS: ALBUMIN 3.9 GM/DL (3.2-5.2); ALT/SGPT 29 U/L (12-78); BILIRUBIN,DIRECT < 0.1 MG/DL (0.0-0.2); BILIRUBIN,TOTAL 0.2 MG/DL (0.2-1.0); BLOOD UREA NITROGEN 19 MG/DL (7-18); C REACTIVE PROTEIN QUANTITATIV 4.04 MG/DL (0.00-0.30); CALCIUM LEVEL 9.5 MG/DL (8.5-10.1); CARBON DIOXIDE LEVEL 24 MEQ/L (21-32); CHLORIDE LEVEL 106 MEQ/L (98-107); COMPLEMENT C3 185 MG/DL (90-180); COMPLEMENT C4 56 MG/DL (10-40); CREATININE FOR GFR 0.73 MG/DL (0.55-1.30); GLOMERULAR FILTRATION RATE > 60.0 (>58); GLUCOSE, FASTING 116 MG/DL (70-100); POTASSIUM SERUM 4.4 MEQ/L (3.5-5.1); RHEUMATOID FACTOR QUANT < 10.0 IU/ML (<15.0); SODIUM LEVEL 138 MEQ/L (136-145); TOTAL PROTEIN 7.7 GM/DL (6.4-8.2)
[2020-07-17 18:18] LABS: ERYTHROCYTE SEDIMENTATION RATE 24 mm/hr (0-20)
[2020-07-18 12:31] LABS: DRVV SCREEN 33.7 SEC
[2020-07-18 12:40] LABS: PTT LUPUS TYPE ANTICOAG SCREEN 0.8 (0-1.2)
== END ==
LOC: M SFHCRHEU 13:58
PROVIDERS: ATTEND Internal Medicine
DX: M06.4 Inflammatory polyarthropathy (principal)

== ENCOUNTER → 2020-09-16 | Outpatient (REF) | payer OTHER | LOC: M SFHCRHEU 13:27 | PROVIDERS: ATTEND Internal Medicine | DX: E55.9 Vitamin D deficiency, unspecified (principal) ==

== ENCOUNTER → 2020-12-20 | Outpatient (CLI) | payer OTHER ==
--- NOTE | 2020-12-20 16:40 | REP ---
INDICATION: OTHER SHOULDER LESIONS, UNSPECIFIED SHOULDER. COMPARISON: None. TECHNIQUE: Three views bilateral FINDINGS: The acromioclavicular and glenohumeral relationships are within normal limits bilateral. There is no acute fracture or destructive osseous lesion bilateral. IMPRESSION: Within normal limits bilateral <Electronically signed by Lukas Mendez > 12/20/20 [id number]
[2020-12-20 17:12] LABS: BASO # 0.2 10^3/uL (0.0-0.2); EOS # 0.7 10^3/uL (0.0-0.5); EOS % 4.5 % (0.0-3.0); HEMATOCRIT 40.9 % (36.0-47.0); HEMOGLOBIN 13.1 g/dl (12.0-15.5); LYMPH # 2.6 10^3/uL (1.5-5.0); LYMPH % 17.7 % (24.0-44.0); MEAN CORPUSCULAR VOLUME 93.8 fl (80.0-96.0); MONO # 1.2 10^3/uL (0.0-0.8); MONO % 8.1 % (2.0-8.0); NEUTROPHILS # 9.9 10^3/uL (1.5-8.5); NEUTROPHILS % 68.1 % (36.0-66.0); PLATELET COUNT, AUTOMATED 309 10^3/uL (150-450); RED BLOOD COUNT 4.36 10^6/uL (4.00-5.40); WHITE BLOOD COUNT 14.6 10^3/uL (4.0-10.0)
[2020-12-20 17:21] LABS: APPEARANCE, URINE CLEAR (CLEAR); BACTERIA, URINE AUTO 1+ (NEGATIVE); BILIRUBIN, URINE AUTO NEGATIVE (NEGATIVE); BLOOD, URINE BLOOD NEGATIVE (NEGATIVE); COLOR, URINE YELLOW (YELLOW); GLUCOSE, URINE (UA) AUTO NEGATIVE (NEGATIVE); KETONE, URINE AUTO NEGATIVE (NEGATIVE); LEUKOCYTE ESTERASE, URINE AUTO TRACE (NEGATIVE); NITRITE, URINE AUTO NEGATIVE (NEGATIVE); PROTEIN, URINE AUTO NEGATIVE (NEGATIVE); RBC, URINE AUTO 1 /HPF (0-3); SPECIFIC GRAVITY URINE AUTO 1.011 (1.002-1.035); SQUAMOUS EPITHELIAL CELL UR AU 3 /HPF (0-6); UROBILINOGEN, URINE AUTO 0.2 mg/dL (0.0-2.0); WBC, URINE AUTO 2 /HPF (0-3)
[2020-12-20 17:26] LABS: CREATININE,RANDOM URINE 71.4 MG/DL; TOTAL PROTEIN,RANDOM URINE 11.5 MG/DL (0.0-12.0)
[2020-12-20 17:29] LABS: ALBUMIN 3.4 GM/DL (3.2-5.2); ALT/SGPT 36 U/L (12-78); BILIRUBIN,DIRECT < 0.1 MG/DL (0.0-0.2); BILIRUBIN,TOTAL 0.3 MG/DL (0.2-1.0); BLOOD UREA NITROGEN 14 MG/DL (7-18); C REACTIVE PROTEIN QUANTITATIV 3.63 MG/DL (0.00-0.30); CALCIUM LEVEL 9.6 MG/DL (8.5-10.1); CARBON DIOXIDE LEVEL 28 MEQ/L (21-32); CHLORIDE LEVEL 106 MEQ/L (98-107); COMPLEMENT C3 175 MG/DL (90-180); COMPLEMENT C4 54 MG/DL (10-40); CREATININE FOR GFR 0.81 MG/DL (0.55-1.30); GLOMERULAR FILTRATION RATE > 60.0 (>58); GLUCOSE, FASTING 103 MG/DL (70-100); POTASSIUM SERUM 4.5 MEQ/L (3.5-5.1); RHEUMATOID FACTOR QUANT < 10.0 IU/ML (<15.0); SODIUM LEVEL 139 MEQ/L (136-145); TOTAL PROTEIN 7.3 GM/DL (6.4-8.2)
[2020-12-20 17:48] LABS: ERYTHROCYTE SEDIMENTATION RATE 35 mm/hr (0-20)
[2020-12-23 11:07] LABS: RNP ANTIBODY < 0.2 AI (0.0-0.9); SMITHS ANTIBODY < 0.2 AI (0.0-0.9)
[2020-12-24 14:04] LABS: DRVV SCREEN 44.6 SEC; PTT LUPUS TYPE ANTICOAG SCREEN 1.2 (0-1.2)
[2020-12-24 14:12] LABS: DRVV CONFIRM 41.4 SEC; LUPUS CONFIRM RATIO 1.1
[2020-12-24 14:21] LABS: NORMALIZED RATIO 1.09 (0.00-1.20)
== END ==
LOC: M PLAIMG 15:46
PROVIDERS: ATTEND Internal Medicine
DX: M75.80 Other shoulder lesions, unspecified shoulder (principal)

== ENCOUNTER → 2021-02-03 | Outpatient (CLI) | payer OTHER ==
[2021-02-03 18:41] LABS: BASO # 0.2 10^3/uL (0.0-0.2); EOS # 0.5 10^3/uL (0.0-0.5); EOS % 3.2 % (0.0-3.0); HEMATOCRIT 40.5 % (36.0-47.0); HEMOGLOBIN 12.8 g/dl (12.0-15.5); LYMPH # 2.6 10^3/uL (1.5-5.0); LYMPH % 16.7 % (24.0-44.0); MEAN CORPUSCULAR HEMOGLOBIN 30.1 pg (27.0-33.0); MEAN CORPUSCULAR HGB CONC 31.6 g/dl (32.0-36.5); MEAN CORPUSCULAR VOLUME 95.3 fl (80.0-96.0); MONO # 1.4 10^3/uL (0.0-0.8); NEUTROPHILS # 10.6 10^3/uL (1.5-8.5); NEUTROPHILS % 69.3 % (36.0-66.0); PLATELET COUNT, AUTOMATED 291 10^3/uL (150-450); RED BLOOD COUNT 4.25 10^6/uL (4.00-5.40); WHITE BLOOD COUNT 15.3 10^3/uL (4.0-10.0)
== END ==
LOC: M PLALAB 15:24
PROVIDERS: ATTEND Physician Assistant Medical
DX: E61.1 Iron deficiency (principal); D72.9 Disorder of white blood cells, unspecified

== ENCOUNTER → 2021-03-13 | Outpatient (CLI) | payer OTHER ==
[~2021-03-13] MED LIST changes: -DICY20TA11 PO; +DICY20TA20 PO; +LOSA50TA28 PO; -LOSA50TA88 PO; +MULT-90 PO; -OMEP-221 PO; +OMEP40CA5 PO; +PLAQ200T4 PO; +ROPI1TAB3 PO; +[UNRECOGNIZED DRUG - CODE] PO
== END ==
LOC: M PLALAB 15:16
PROVIDERS: ATTEND Internal Medicine
DX: M06.4 Inflammatory polyarthropathy (principal)

== ENCOUNTER → 2021-03-20 | Outpatient (CLI) | payer OTHER ==
[~2021-03-20] MED LIST changes: +DICY20TA11 PO; -DICY20TA20 PO; -LOSA50TA28 PO; +LOSA50TA88 PO; -MULT-90 PO; +OMEP-221 PO; -OMEP40CA5 PO; -PLAQ200T4 PO; -ROPI1TAB3 PO; -[UNRECOGNIZED DRUG - CODE] PO
--- NOTE | 2021-03-20 11:41 | REPMRS ---
Patient History The patient states she had a clinical breast exam on 2020. Family history of breast cancer at age 71 in maternal grandmother. Taking hormonal contraceptives for 6 years 3 months. Patient states no breast complaints today. Patient has signed MRS History Sheet. Digital Woman Screen Mammo: March 20, 2021 - Exam #: [id number] Bilateral CC and MLO view(s) were taken. Technologist: Lisette Vázquez, Food And Nutrition Services Supervisor Prior study comparison: January 29, 2020, bilateral digital woman screen mammo performed at [facility]. January 26, 2019, bilateral digital woman screen mammo performed at [facility]. FINDINGS: There are scattered fibroglandular densities. Screening. Digital screening (2D) mammography was performed bilaterally in the CC and MLO projections. Additionally, breast tomosynthesis (3D mammography) was performed bilaterally in the CC and MLO projections. Todays exam was compared to the prior exam/exams. By history, the patient has no complaints of a palpable breast abnormality or other significant breast complaints. The Volpara volumetric breast density category is B, there are scattered areas of fibroglandular densities. The breasts are unchanged in size and shape. There are no [place]-soft tissue densities or spiculated masses. There is no internal architectural distortion. There are no suspicious [place]-calcific clusters. Skin thickening or nipple retraction is not present. IMPRESSION: BI-RADS Category 2- Benign Findings. There is no evidence of malignant alteration of the breasts. Followup examination recommended in one year. This mammogram was read with the assistance of [facility] [employer],an FDA approved computer aided detection system for mammography. The lifetime Tyrer-Cuzick score is 13.1% Negative x-ray reports should not delay surgical consultation if a dominant or clinically suspicious mass is present. Not all breast cancers can be identified by mammography. Therefore, we recommend that you continue to perform regular breast self-examination and physical examination and then promptly contact your physician of any concerns or changes. Adenosis and dense breasts may obscure an underlying neoplasm. No significant changes when compared with prior studies. Assessment: BI-RADS/ACR category 2 mammogram. Benign Findings. Recommendation Routine screening mammogram of both breasts in 1 year. Electronically Signed By: Moisés Edouard MD 03/20/21 8084
== END ==
LOC: M WHC 08:50
PROVIDERS: ATTEND Nurse Practitioner Women's Health
DX: Z12.31 Encounter for screening mammogram for malignant neoplasm of breast (principal); Z80.3 Family history of malignant neoplasm of breast

== ENCOUNTER → 2021-05-19 | Outpatient (CLI) | payer OTHER ==
[~2021-05-19] MED LIST changes: -DICY20TA11 PO; +DICY20TA20 PO; +LOSA50TA28 PO; -LOSA50TA88 PO; +MULT-90 PO; -OMEP-221 PO; +OMEP40CA5 PO; +PLAQ200T4 PO; +ROPI1TAB3 PO; +[UNRECOGNIZED DRUG - CODE] PO
== END ==
LOC: M RAD 09:12
PROVIDERS: ATTEND Internal Medicine Hematology & Oncology
DX: D72.829 Elevated white blood cell count, unspecified (principal); K76.0 Fatty (change of) liver, not elsewhere classified

== ENCOUNTER → 2021-07-08 | Outpatient (REF) | payer OTHER ==
[2021-07-08 17:24] LABS: PERCENT SATURATION 16.2 % (13.2-45.0)
== END ==
LOC: M LAB REF 16:20
PROVIDERS: ATTEND Family Medicine
DX: E61.1 Iron deficiency (principal)

== ENCOUNTER → 2021-10-14 | Outpatient (CLI) | payer OTHER ==
[2021-10-14 15:41] LABS: INR 0.94
[2021-10-14 15:47] LABS: ALBUMIN 3.4 GM/DL (3.2-5.2); ALT/SGPT 40 U/L (12-78); BILIRUBIN,DIRECT 0.2 MG/DL (0.0-0.2); BILIRUBIN,TOTAL 0.3 MG/DL (0.2-1.0); IRON (FE) 62 UG/DL (50-170); PERCENT SATURATION 18.4 % (13.2-45.0); TOTAL IRON BINDING CAPACITY 337 UG/DL (250-450); TOTAL PROTEIN 7.1 GM/DL (6.4-8.2)
[2021-10-14 16:10] LABS: HEPATITIS B SURFACE ANTIGEN NEGATIVE (NEGATIVE)
[2021-10-14 16:37] LABS: HEPATITIS C VIRUS ABY INDEX 0.1 INDEX (<0.8)
[2021-10-14 16:38] LABS: HEPATITIS B CORE ANTIBODY IGM NEGATIVE (NEGATIVE)
== END ==
LOC: M PLALAB 14:03
PROVIDERS: ATTEND Internal Medicine Gastroenterology
DX: K75.81 Nonalcoholic steatohepatitis (NASH) (principal)

== ENCOUNTER → 2022-02-13 | Outpatient (CLI) | payer OTHER ==
[~2022-02-13] MED LIST changes: +METR0.7526 TOP; -METR0.7533 TOP
[2022-02-13 17:59] LABS: C REACTIVE PROTEIN QUANTITATIV 4.94 MG/DL (0.00-0.30)
[2022-02-13 18:59] LABS: TOTAL 25(OH) VITAMIN D 30.1 NG/ML (30.0-100.0)
== END ==
LOC: M PLALAB 14:26
PROVIDERS: ATTEND Internal Medicine
DX: E55.9 Vitamin D deficiency, unspecified (principal); M06.4 Inflammatory polyarthropathy

== ENCOUNTER → 2022-05-05 | Outpatient (CLI) | payer OTHER | LOC: M WHC 09:54 | PROVIDERS: ATTEND Advanced Practice Midwife | DX: Z12.31 Encounter for screening mammogram for malignant neoplasm of breast (principal) ==

== ENCOUNTER → 2022-05-20 | Outpatient (CLI) | payer OTHER | LOC: M WHC 08:58 | PROVIDERS: ATTEND Advanced Practice Midwife | DX: R92.2 Inconclusive mammogram (principal) | CPT/HCPCS: 77065; G0279 ==

== ENCOUNTER → 2022-06-26 | Outpatient (CLI) | payer OTHER | LOC: M SOG 08:10 | PROVIDERS: ATTEND Orthopaedic Surgery | DX: M25.561 Pain in right knee (principal); M17.11 Unilateral primary osteoarthritis, right knee ==

== ENCOUNTER → 2022-08-31 | Outpatient (REF) | payer OTHER | LOC: M LAB REF 16:26 | PROVIDERS: ATTEND Family Medicine | DX: G60.9 Hereditary and idiopathic neuropathy, unspecified (principal) ==

== ENCOUNTER → 2023-01-01 | Outpatient (CLI) | payer OTHER ==
[~2023-01-01] MED LIST changes: -ROPI1TAB3 PO; +ROPI1TAB73 PO
== END ==
LOC: M PLALAB 15:34
PROVIDERS: ATTEND Internal Medicine
DX: Z79.899 Other long term (current) drug therapy (principal); E55.9 Vitamin D deficiency, unspecified

== ENCOUNTER → 2023-01-20 | Outpatient (REF) | payer OTHER ==
[2023-01-21 13:04] LABS: APPEARANCE, URINE CLOUDY (CLEAR); BACTERIA, URINE AUTO 1+ (NEGATIVE); BILIRUBIN, URINE AUTO NEGATIVE (NEGATIVE); BLOOD, URINE BLOOD NEGATIVE (NEGATIVE); COLOR, URINE YELLOW (YELLOW); GLUCOSE, URINE (UA) AUTO NEGATIVE (NEGATIVE); KETONE, URINE AUTO NEGATIVE (NEGATIVE); LEUKOCYTE ESTERASE, URINE AUTO 3+ (NEGATIVE); MUCUS, URINE SMALL (NEGATIVE); NITRITE, URINE AUTO NEGATIVE (NEGATIVE); PROTEIN, URINE AUTO NEGATIVE (NEGATIVE); RBC, URINE AUTO 21 /HPF (0-3); SPECIFIC GRAVITY URINE AUTO 1.008 (1.002-1.035); SQUAMOUS EPITHELIAL CELL UR AU 32 /HPF (0-6); UROBILINOGEN, URINE AUTO 0.2 mg/dL (0.0-2.0); WBC, URINE AUTO 20 /HPF (0-3)
== END ==
LOC: M LAB REF 12:04
PROVIDERS: ATTEND Family Medicine
DX: R31.9 Hematuria, unspecified (principal)

== ENCOUNTER → 2023-03-10 | Outpatient (CLI) | payer OTHER | LOC: M RAD 13:31 | PROVIDERS: ATTEND Physician Assistant Medical | DX: M25.562 Pain in left knee (principal) ==

== ENCOUNTER → 2023-05-20 | Outpatient (CLI) | payer OTHER | LOC: M PLALAB 11:20 | PROVIDERS: ATTEND Internal Medicine | DX: E55.9 Vitamin D deficiency, unspecified (principal); Z79.899 Other long term (current) drug therapy ==

== ENCOUNTER → 2023-05-20 | Outpatient (REF) | payer OTHER | LOC: M SFHCRHEU 10:52 | PROVIDERS: ATTEND Internal Medicine | DX: E55.9 Vitamin D deficiency, unspecified (principal); Z79.899 Other long term (current) drug therapy ==

== ENCOUNTER → 2023-05-24 | Outpatient (REF) | payer OTHER | LOC: M LAB REF 12:35 | PROVIDERS: ATTEND Family Medicine | DX: M79.605 Pain in left leg (principal) ==

== ENCOUNTER → 2023-07-07 | Outpatient (CLI) | payer OTHER | LOC: M WHC 15:22 | PROVIDERS: ATTEND Nurse Practitioner Family | DX: Z12.31 Encounter for screening mammogram for malignant neoplasm of breast (principal) ==

== ENCOUNTER → 2023-11-12 | Outpatient (REF) | payer OTHER | LOC: M LAB REF 16:29 | PROVIDERS: ATTEND Family Medicine | DX: G60.9 Hereditary and idiopathic neuropathy, unspecified (principal) ==

== ENCOUNTER → 2024-03-30 | Outpatient (REF) | payer OTHER | LOC: M LAB REF 12:51 | PROVIDERS: ATTEND Family Medicine | DX: G60.9 Hereditary and idiopathic neuropathy, unspecified (principal) ==

== ENCOUNTER → 2024-04-03 | Outpatient (REF) | payer OTHER | LOC: M LAB REF 16:03 | PROVIDERS: ATTEND Family Medicine | DX: R31.9 Hematuria, unspecified (principal); N39.0 Urinary tract infection, site not specified ==

== ENCOUNTER → 2024-05-23 | Outpatient (REF) | payer OTHER ==
[2024-05-23 17:44] LABS: ALBUMIN 3.8 G/DL (3.2-5.2); ALKALINE PHOSPHATASE 88 U/L (35-104); ALT/SGPT 31 U/L (7.0-40); AST/SGOT 16 U/L (<34); BILIRUBIN,DIRECT 0.1 MG/DL (<0.4); BILIRUBIN,TOTAL 0.4 MG/DL (0.3-1.2); BLOOD UREA NITROGEN 21 MG/DL (9-23); C REACTIVE PROTEIN QUANTITATIV 3.43 MG/DL (<1.0); CALCIUM LEVEL 9.6 MG/DL (8.5-10.1); CARBON DIOXIDE LEVEL 26 MMOL/L (20-31); CHLORIDE LEVEL 107 MMOL/L (98-107); CREATININE FOR GFR 0.76 MG/DL (0.55-1.30); GLOMERULAR FILTRATION RATE > 60.0 (>51); GLUCOSE, FASTING 105 MG/DL (60-100); POTASSIUM SERUM 4.3 MMOL/L (3.5-5.1); SODIUM LEVEL 142 MMOL/L (136-145); TOTAL PROTEIN 7.3 G/DL (5.7-8.2)
[2024-05-23 17:46] LABS: COMPLEMENT C3 203.3 MG/DL (90.0-170.0); COMPLEMENT C4 59.6 MG/DL (12-36)
[2024-05-23 17:47] LABS: TOTAL 25(OH) VITAMIN D 39.9 NG/ML (20.0-100.0)
[2024-05-23 18:07] LABS: APPEARANCE, URINE CLOUDY (CLEAR); BACTERIA, URINE AUTO NEGATIVE (NEGATIVE); BILIRUBIN, URINE AUTO NEGATIVE (NEGATIVE); BLOOD, URINE BLOOD NEGATIVE (NEGATIVE); COLOR, URINE YELLOW (YELLOW); GLUCOSE, URINE (UA) AUTO NEGATIVE (NEGATIVE); KETONE, URINE AUTO NEGATIVE (NEGATIVE); LEUKOCYTE ESTERASE, URINE AUTO 3+ (NEGATIVE); NITRITE, URINE AUTO NEGATIVE (NEGATIVE); PROTEIN, URINE AUTO NEGATIVE (NEGATIVE); RBC, URINE AUTO 0 /HPF (0-3); SPECIFIC GRAVITY URINE AUTO 1.024 (1.002-1.035); SQUAMOUS EPITHELIAL CELL UR AU 11 /HPF (0-6); UROBILINOGEN, URINE AUTO 0.2 mg/dL (0.0-2.0); WBC, URINE AUTO 4 /HPF (0-3)
[2024-05-23 18:44] LABS: CREATININE,RANDOM URINE 146.7 MG/DL; TOTAL PROTEIN,RANDOM URINE 29.7 MG/DL (0.0-14.0)
[2024-05-23 18:56] LABS: BASO # 0.2 10^3/uL (0.0-0.2); BASO % 1.1 % (0.0-1.0); EOS # 0.4 10^3/uL (0.0-0.5); EOS % 2.8 % (0.0-3.0); HEMATOCRIT 42.7 % (36.0-47.0); HEMOGLOBIN 13.5 g/dl (12.0-15.5); LYMPH # 2.3 10^3/uL (1.5-5.0); LYMPH % 15.9 % (24.0-44.0); MEAN CORPUSCULAR HEMOGLOBIN 30.7 pg (27.0-33.0); MEAN CORPUSCULAR HGB CONC 31.6 g/dl (32.0-36.5); MONO # 1.2 10^3/uL (0.0-0.8); MONO % 8.1 % (2.0-8.0); NEUTROPHILS % 71.1 % (36.0-66.0); PLATELET COUNT, AUTOMATED 293 10^3/uL (150-450); WHITE BLOOD COUNT 14.1 10^3/uL (4.0-10.0)
[2024-05-23 19:00] LABS: ERYTHROCYTE SEDIMENTATION RATE 59 mm/hr (0-30)
== END ==
LOC: M SFHCRHEU 13:54
PROVIDERS: ATTEND Internal Medicine
DX: M06.4 Inflammatory polyarthropathy (principal); E55.9 Vitamin D deficiency, unspecified; Z79.899 Other long term (current) drug therapy

== ENCOUNTER → 2024-07-12 | Outpatient (CLI) | payer OTHER | LOC: M WHC 06:57 | PROVIDERS: ATTEND Family Medicine | DX: Z12.31 Encounter for screening mammogram for malignant neoplasm of breast (principal); Z80.3 Family history of malignant neoplasm of breast ==

== ENCOUNTER → 2024-07-15 | Outpatient (CLI) | payer OTHER | LOC: M RAD 10:35 | PROVIDERS: ATTEND Psychiatry & Neurology Neurology | DX: M54.16 Radiculopathy, lumbar region (principal); M43.16 Spondylolisthesis, lumbar region; M48.061 Spinal stenosis, lumbar region without neurogenic claudication; M24.28 Disorder of ligament, vertebrae; M48.04 Spinal stenosis, thoracic region; M51.26 Other intervertebral disc displacement, lumbar region; M51.24 Other intervertebral disc displacement, thoracic region ==

== ENCOUNTER → 2024-07-19 | Outpatient (CLI) | payer OTHER | LOC: M WHC 14:24 | PROVIDERS: ATTEND Family Medicine | DX: R92.8 Other abnormal and inconclusive findings on diagnostic imaging of breast (principal) | CPT/HCPCS: 77065; G0279 ==

== ENCOUNTER → 2024-08-25 | Outpatient (REF) | payer OTHER ==
[2024-08-25 15:35] LABS: BASO # 0.1 10^3/uL (0.0-0.2); EOS # 0.5 10^3/uL (0.0-0.5); EOS % 4.4 % (0.0-3.0); HEMATOCRIT 42.6 % (36.0-47.0); HEMOGLOBIN 13.5 g/dl (12.0-15.5); LYMPH # 2.1 10^3/uL (1.5-5.0); LYMPH % 17.3 % (24.0-44.0); MEAN CORPUSCULAR HEMOGLOBIN 30.6 pg (27.0-33.0); MEAN CORPUSCULAR HGB CONC 31.7 g/dl (32.0-36.5); MEAN CORPUSCULAR VOLUME 96.6 fl (80.0-96.0); MONO # 0.9 10^3/uL (0.0-0.8); MONO % 7.5 % (2.0-8.0); NEUTROPHILS # 8.4 10^3/uL (1.5-8.5); NEUTROPHILS % 69.1 % (36.0-66.0); PLATELET COUNT, AUTOMATED 316 10^3/uL (150-450); RED BLOOD COUNT 4.41 10^6/uL (4.00-5.40); WHITE BLOOD COUNT 12.2 10^3/uL (4.0-10.0)
[2024-08-25 15:41] LABS: ERYTHROCYTE SEDIMENTATION RATE 54 mm/hr (0-30)
[2024-08-25 16:02] LABS: C REACTIVE PROTEIN QUANTITATIV 2.06 MG/DL (<1.0)
[2024-08-25 16:03] LABS: ALBUMIN 4.1 G/DL (3.2-5.2); ALKALINE PHOSPHATASE 93 U/L (35-104); ALT/SGPT 32 U/L (7.0-40); AST/SGOT 19 U/L (<34); BILIRUBIN,DIRECT 0.2 MG/DL (<0.4); BILIRUBIN,TOTAL 0.5 MG/DL (0.3-1.2); BLOOD UREA NITROGEN 22 MG/DL (9-23); CALCIUM LEVEL 9.7 MG/DL (8.5-10.1); CARBON DIOXIDE LEVEL 28 MMOL/L (20-31); CHLORIDE LEVEL 104 MMOL/L (98-107); CREATININE FOR GFR 0.58 MG/DL (0.55-1.30); GLOMERULAR FILTRATION RATE > 90.0 (>51); GLUCOSE, FASTING 104 MG/DL (60-100); POTASSIUM SERUM 4.7 MMOL/L (3.5-5.1); SODIUM LEVEL 144 MMOL/L (136-145); TOTAL PROTEIN 7.4 G/DL (5.7-8.2)
== END ==
LOC: M SFHCRHEU 13:00
PROVIDERS: ATTEND Internal Medicine
DX: M05.79 Rheumatoid arthritis with rheumatoid factor of multiple sites without organ or systems involvement (principal)

== ENCOUNTER → 2024-11-08 | Outpatient (CLI) | payer OTHER ==
[~2024-11-08] MED LIST changes: -PROZ20CA11 PO; +PROZ20CA12 PO
[2024-11-08 15:12] LABS: BASO # 0.1 10^3/uL (0.0-0.2); BASO % 1.0 % (0.0-1.0); EOS # 0.5 10^3/uL (0.0-0.5); EOS % 4.8 % (0.0-3.0); LYMPH # 2.1 10^3/uL (1.5-5.0); LYMPH % 18.9 % (24.0-44.0); MONO # 1.1 10^3/uL (0.0-0.8); MONO % 10.4 % (2.0-8.0); NEUTROPHILS # 7.1 10^3/uL (1.5-8.5); NEUTROPHILS % 64.4 % (36.0-66.0); PLATELET COUNT, AUTOMATED 296 10^3/uL (150-450)
[2024-11-08 15:19] LABS: ERYTHROCYTE SEDIMENTATION RATE 42 mm/hr (0-30)
[2024-11-08 15:43] LABS: ALT/SGPT 45 U/L (7.0-40); AST/SGOT 27 U/L (<34); C REACTIVE PROTEIN QUANTITATIV 1.97 MG/DL (<1.0); CALCIUM LEVEL 9.5 MG/DL (8.5-10.1); CARBON DIOXIDE LEVEL 30 MMOL/L (20-31); CHLORIDE LEVEL 102 MMOL/L (98-107); CREATININE FOR GFR 0.67 MG/DL (0.55-1.30); GLOMERULAR FILTRATION RATE > 90.0 (>51); POTASSIUM SERUM 4.7 MMOL/L (3.5-5.1); SODIUM LEVEL 143 MMOL/L (136-145)
== END ==
LOC: M PLALAB 12:58
PROVIDERS: ATTEND Internal Medicine
DX: M05.79 Rheumatoid arthritis with rheumatoid factor of multiple sites without organ or systems involvement (principal)

== ENCOUNTER → 2024-12-06 | Outpatient (CLI) | payer OTHER ==
[2024-12-06 13:45] LABS: BASO # 0.1 10^3/uL (0.0-0.2); BASO % 1.1 % (0.0-1.0); EOS # 0.5 10^3/uL (0.0-0.5); EOS % 5.0 % (0.0-3.0); LYMPH # 1.9 10^3/uL (1.5-5.0); LYMPH % 17.8 % (24.0-44.0); MONO # 1.0 10^3/uL (0.0-0.8); MONO % 8.8 % (2.0-8.0); NEUTROPHILS # 7.3 10^3/uL (1.5-8.5); NEUTROPHILS % 66.7 % (36.0-66.0); PLATELET COUNT, AUTOMATED 325 10^3/uL (150-450)
[2024-12-06 13:55] LABS: ERYTHROCYTE SEDIMENTATION RATE 45 mm/hr (0-30)
[2024-12-06 14:27] LABS: C REACTIVE PROTEIN QUANTITATIV 2.77 MG/DL (<1.0)
[2024-12-06 14:30] LABS: ALT/SGPT 56 U/L (7.0-40); AST/SGOT 31 U/L (<34); CALCIUM LEVEL 9.6 MG/DL (8.5-10.1); CARBON DIOXIDE LEVEL 27 MMOL/L (20-31); CHLORIDE LEVEL 101 MMOL/L (98-107); CREATININE FOR GFR 0.63 MG/DL (0.55-1.30); GLOMERULAR FILTRATION RATE > 90.0 (>51); POTASSIUM SERUM 5.0 MMOL/L (3.5-5.1); SODIUM LEVEL 141 MMOL/L (136-145)
== END ==
LOC: M PLALAB 11:52
PROVIDERS: ATTEND Internal Medicine
DX: M05.79 Rheumatoid arthritis with rheumatoid factor of multiple sites without organ or systems involvement (principal)

== ENCOUNTER → 2025-01-04 | Outpatient (CLI) | payer OTHER ==
[~2025-01-04] MED LIST changes: +ALPR-515 PO; -ALPR0.5T6 PO
[2025-01-04 17:48] LABS: BASO # 0.2 10^3/uL (0.0-0.2); BASO % 1.1 % (0.0-1.0); EOS # 0.4 10^3/uL (0.0-0.5); EOS % 3.2 % (0.0-3.0); LYMPH # 2.2 10^3/uL (1.5-5.0); LYMPH % 16.5 % (24.0-44.0); MONO # 1.1 10^3/uL (0.0-0.8); MONO % 8.2 % (2.0-8.0); NEUTROPHILS # 9.5 10^3/uL (1.5-8.5); NEUTROPHILS % 70.7 % (36.0-66.0); PLATELET COUNT, AUTOMATED 333 10^3/uL (150-450)
[2025-01-04 17:55] LABS: ALT/SGPT 65.0 U/L (7.0-40); AST/SGOT 40.0 U/L (<34); C REACTIVE PROTEIN QUANTITATIV 2.98 MG/DL (<1.0); CALCIUM LEVEL 10.2 MG/DL (8.5-10.1); CARBON DIOXIDE LEVEL 29.0 MMOL/L (20-31); CHLORIDE LEVEL 100.0 MMOL/L (98-107); CREATININE FOR GFR 0.79 MG/DL (0.55-1.30); ERYTHROCYTE SEDIMENTATION RATE 49 mm/hr (0-30); GLOMERULAR FILTRATION RATE 89.4 (>51); POTASSIUM SERUM 4.6 MMOL/L (3.5-5.1); SODIUM LEVEL 140.0 MMOL/L (136-145)
== END ==
LOC: M PLALAB 16:00
PROVIDERS: ATTEND Internal Medicine
DX: M05.79 Rheumatoid arthritis with rheumatoid factor of multiple sites without organ or systems involvement (principal)

== ENCOUNTER → 2025-01-09 | Outpatient (CLI) | payer OTHER | LOC: M PLAIMG 12:07 | PROVIDERS: ATTEND Internal Medicine | DX: M25.572 Pain in left ankle and joints of left foot (principal); M77.51 Other enthesopathy of right foot and ankle; M77.52 Other enthesopathy of left foot and ankle ==

== ENCOUNTER → 2025-01-24 | Outpatient (CLI) | payer OTHER ==
[2025-01-24 18:43] LABS: ALT/SGPT 71.0 U/L (7.0-40); AST/SGOT 48.0 U/L (<34)
== END ==
LOC: M PLALAB 15:22
PROVIDERS: ATTEND Internal Medicine
DX: R74.8 Abnormal levels of other serum enzymes (principal)

== ENCOUNTER → 2025-01-29 | Outpatient (CLI) | payer OTHER | LOC: M PLAIMG 13:59 | PROVIDERS: ATTEND Physician Assistant | DX: M54.2 Cervicalgia (principal) ==

== ENCOUNTER → 2025-02-23 | Outpatient (CLI) | payer OTHER ==
[2025-02-23 17:08] LABS: BASO # 0.1 10^3/uL (0.0-0.2); BASO % 1.1 % (0.0-1.0); EOS # 0.5 10^3/uL (0.0-0.5); EOS % 4.0 % (0.0-3.0); LYMPH # 2.0 10^3/uL (1.5-5.0); LYMPH % 16.5 % (24.0-44.0); MONO # 1.2 10^3/uL (0.0-0.8); MONO % 9.7 % (2.0-8.0); NEUTROPHILS # 8.3 10^3/uL (1.5-8.5); NEUTROPHILS % 68.2 % (36.0-66.0); PLATELET COUNT, AUTOMATED 335 10^3/uL (150-450)
[2025-02-23 17:09] LABS: C REACTIVE PROTEIN QUANTITATIV 2.31 MG/DL (<1.0)
[2025-02-23 17:10] LABS: ALT/SGPT 64 U/L (7.0-40); AST/SGOT 33 U/L (<34); CALCIUM LEVEL 9.2 MG/DL (8.5-10.1); CARBON DIOXIDE LEVEL 27 MMOL/L (20-31); CHLORIDE LEVEL 102 MMOL/L (98-107); CREATININE FOR GFR 0.70 MG/DL (0.55-1.30); GLOMERULAR FILTRATION RATE > 90.0 (>51); POTASSIUM SERUM 4.2 MMOL/L (3.5-5.1); SODIUM LEVEL 141 MMOL/L (136-145)
== END ==
LOC: M PLALAB 13:46
PROVIDERS: ATTEND Internal Medicine
DX: M05.79 Rheumatoid arthritis with rheumatoid factor of multiple sites without organ or systems involvement (principal)

== ENCOUNTER → 2025-03-14 | Outpatient (REF) | payer OTHER ==
[~2025-03-14] MED LIST changes: -PROZ20CA12 PO; +PROZ20CA25 PO
== END ==
LOC: M LAB REF 12:42
PROVIDERS: ATTEND Family Medicine
DX: G60.9 Hereditary and idiopathic neuropathy, unspecified (principal)

== ENCOUNTER → 2025-03-29 | Outpatient (CLI) | payer OTHER ==
[2025-03-29 15:11] LABS: PLATELET COUNT, AUTOMATED 341 10^3/uL (150-450)
[2025-03-29 15:32] LABS: INR 0.99
== END ==
LOC: M PLALAB 13:56
PROVIDERS: ATTEND Physician Assistant
DX: Z01.818 Encounter for other preprocedural examination (principal)

== ENCOUNTER → 2025-03-29 | Outpatient (CLI) | payer OTHER ==
[2025-03-29 15:27] LABS: BASO # 0.1 10^3/uL (0.0-0.2); BASO % 1.1 % (0.0-1.0); EOS # 0.5 10^3/uL (0.0-0.5); EOS % 4.1 % (0.0-3.0); LYMPH # 2.2 10^3/uL (1.5-5.0); LYMPH % 17.5 % (24.0-44.0); MONO # 1.1 10^3/uL (0.0-0.8); MONO % 8.5 % (2.0-8.0); NEUTROPHILS # 8.8 10^3/uL (1.5-8.5); NEUTROPHILS % 68.3 % (36.0-66.0); PLATELET COUNT, AUTOMATED 342 10^3/uL (150-450)
[2025-03-29 15:49] LABS: ALT/SGPT 56 U/L (7.0-40); AST/SGOT 30 U/L (<34); C REACTIVE PROTEIN QUANTITATIV 3.14 MG/DL (<1.0); CALCIUM LEVEL 9.5 MG/DL (8.5-10.1); CARBON DIOXIDE LEVEL 29 MMOL/L (20-31); CHLORIDE LEVEL 101 MMOL/L (98-107); CREATININE FOR GFR 0.67 MG/DL (0.55-1.30); GLOMERULAR FILTRATION RATE > 90.0 (>51); POTASSIUM SERUM 4.5 MMOL/L (3.5-5.1); SODIUM LEVEL 140 MMOL/L (136-145)
== END ==
LOC: M PLALAB 13:51
PROVIDERS: ATTEND Internal Medicine
DX: M05.79 Rheumatoid arthritis with rheumatoid factor of multiple sites without organ or systems involvement (principal)